=== PATIENT | female | born 1960 ===

== ENCOUNTER 2025-01-13 06:02 | Day surgery (SDC) | payer OTHER ==
[2025-01-06 09:10] LABS: URINE APPEARANCE Cloudy; URINE BILIRRUBIN Negative (NEGATIVE); URINE BLOOD Small; URINE COLOR Yellow; URINE GLUCOSE Negative (NEGATIVE); URINE KETONE Negative (NEGATIVE); URINE LEUKOCYTE Large; URINE NITRATE Positive; URINE PROTEIN Negative (NEGATIVE)
[2025-01-06 09:13] LABS: URINE EPITHELIAL CELLS 92.9 uL (0.0-38.8); URINE RBC 14.8 uL (0.0-20.8); URINE WBC 350.8 uL (0.0-23.2)
[2025-01-06 09:16] LABS: HEMATOCRIT 41.6 % (36.0-45.00); HEMOGLOBIN 14.4 g/dL (12.0-15.00); MEAN CELL VOLUME 92.9 fL (80.00-100.00); MEAN CORPUSCULAR HEMOGLOBIN 32.1 pg (27.00-32.0); MEAN CORPUSCULAR HGB CONC 34.5 g/dl (32.0-36.0); RED BLOOD COUNT 4.48 M/uL (4.00-6.00); RED CELL DISTRIBUTION WIDTH 14.7 % (11.5-14.5)
[2025-01-06 09:18] LABS: PLATELET COUNT 115 K/uL (150-450)
[2025-01-06 09:33] LABS: URINE BACTERIA > 9821.5 uL (0.0-1933)
[2025-01-06 09:35] LABS: INR 1.1; PROTHROMBIN TIME 11.9 SECONDS (9.0-11.5)
[2025-01-06 09:35] LABS: URINE CRYSTALS FEW /HPF
[2025-01-06 09:49] VITALS: BP 130/84
[2025-01-06 10:52] LABS: ALBUMIN 3.5 gm/dL (3.4-5.0); BILIRUBIN TOTAL 0.89 mg/dL (0.3-1.2); CALCIUM 9.5 mg/dL (8.5-10.1); CREATININE SERUM 0.58 mg/dL (0.55-1.02); GFR 104.01; GLOBULINA 4.4 G/DL (2.4-3.5); POTASSIUM 3.42 mEq/L (3.5-5.1); TOTAL PROTEIN 7.9 gm/dL (6.4-8.2)
[~2025-01-13] VITALS: Ht 154.9 cm; Wt 63.5 kg
[2025-01-13] MEDS ORDERED: LIDOCAINE HCL 1%/EPINEPHRINE 20ML VIAL IJ ONE (11:11)
[2025-01-13] MEDS ORDERED: LIDOCAINE HCL 1% 20 ML VIAL IJ ONE (11:11)
[2025-01-13] MEDS ORDERED: CEFAZOLIN SODIUM 1,000 MG VIAL IV SCH (12:15)
[2025-01-13] MEDS ORDERED: FAMOTIDINE/PF 20 MG/10 ML SYRINGE IV SCH (12:15)
== END 2025-01-13 14:45 | disposition home or self-care (01) ==
LOC: CIR.AMB 06:02 → AMB-ENDOS 08:45 → CIR.AMB 14:45
PROVIDERS: ATTEND Specialist
DX: D21.6 Benign neoplasm of connective and other soft tissue of trunk, unspecified (principal)